=== PATIENT | male | born 1950 | race Caucasian/White ===

== ENCOUNTER → 2016-06-29 | Day surgery (SDC) | payer MEDICARE, OTHER ==
[~2016-06-29] MED LIST: ACETAMINOPHEN 1000 MG/100 ML VIAL IV ONE; BUPIVACAINE HCL PF 0.5% 30 ML VIAL ONE; BUPIVACAINE/EPINEPHRINE 0.5% PF 30 ML VIAL ONE; DEXT30LI5 PO; HYDR-3580 PO; IBUP-232 PO; KETOROLAC TROMETHAMINE 30 MG/ML (IVP) VIAL IV PUSH ONE; LACTATED RINGER'S 1000 ML INJ 1,000 ML ONE; LISI20TA3 PO; MELA1TAB18 PO; MEPERIDINE HCL 25 MG/ML VIAL ONE; MIDAZOLAM HCL 2 MG/2 ML VIAL ONE; OMEP20TA PO; ONDANSETRON HCL 4 MG/2 ML VIAL IV PUSH ONE; PROPOFOL 100 MG/10 ML INJ IV ONE; ceFAZolin 2 GM PREMIX 50 ML ONE; metroNIDAZOLE 500 MG INJ 100 ML IV ONE; oxyCODONE/ACETAMINOPHEN 5 MG/325 MG TAB ONE
--- NOTE | 2016-06-29 13:27 | TN ---
cc: JESUS ALBERTO KEYES MD DATE OF SURGERY 06/29/2016 PREOPERATIVE DIAGNOSIS Biliary colic. POSTOPERATIVE DIAGNOSIS Biliary colic. PROCEDURE Laparoscopic cholecystectomy. SURGEON Jesus Alberto Keyes MD [employer]. ANESTHESIA General anesthesia. SPECIMEN Gallbladder and contents. ESTIMATED BLOOD LOSS 5 cc. COMPLICATIONS None apparent. OPERATIVE FINDINGS The patient had fatty gallbladder wall. I did not identify any stones or significant scarring or wall thickening. He did have adhesions from the lateral right lobe of the liver to the abdominal wall which were taken down. PROCEDURE IN DETAIL The patient was taken to the operating room, placed in a supine position. General endotracheal anesthesia was induced. The abdomen was prepped and draped in the usual sterile fashion and a surgical time-out was performed to verify correct patient, procedure and site. The patient was administered appropriate perioperative antibiotics. Local anesthetic was injected into the skin and subcutaneous tissue superior to the umbilicus and a 5-mm incision made. Using the OptiView 5-mm trocar, direct laparoscopic entry was obtained. The abdomen was insufflated to 15 mmHg with CO2 gas which the patient tolerated well and he was placed in reverse Trendelenburg position. A 12-mm port placed in the epigastrium, a 5-mm port in the right upper quadrant and a 5-mm port in the right lateral abdomen, all under laparoscopic visualization. The patient was noted to have an area of dense adhesions from the right lateral lobe of the liver to the abdominal wall and these were divided using electrocautery. Next, the dome of the gallbladder was grasped and elevated cephalad. The gallbladder had a fatty wall. The infundibulum was grasped and retracted laterally. Careful blunt dissection and judicious use of electrocautery was used to identify both the cystic duct and the cystic artery directly entering the gallbladder. The critical view of safety was obtained. Two clips were placed proximally and one distally on each of theses structures. They were both divided. The gallbladder was removed from the liver bed using electrocautery. It was fairly intrahepatic and the gallbladder was entered with spillage of some clear green bile. The gallbladder was removed using an EndoCatch bag and the right upper quadrant and gallbladder fossa copiously irrigated and suctioned. There was good hemostasis at the liver bed and both the cystic duct and cystic artery stumps were intact with no bleeding or leakage of bile. The abdomen was allowed to desufflate and trocars removed. The epigastric fascial incision was closed with 0 Vicryl suture. The skin was closed with 4-0 Monocryl and Dermabond. The patient tolerated the procedure well, was extubated and taken to the PACU in stable condition. MD FELTON Hernandez/MAI /12:20 PM /1:15 PM
== END | disposition home or self-care (01) ==
LOC: ESDC 09:07
PROVIDERS: ATTEND Surgery
DX: K81.1 Chronic cholecystitis (principal)
CPT/HCPCS: 00790; 47562; 88304; J0131; J0690; J1885; J2175; J2250; J2405; J3010; J7120